=== PATIENT | female | born 1940 | race Two or more races ===

== ENCOUNTER 2016-12-14 15:15 | Outpatient (RCR) | payer OTHER, BC | END 2016-12-30 | disposition home or self-care (01) | LOC: PTY 15:15 | DX: M54.5 Low back pain (principal); M48.00 Spinal stenosis, site unspecified | CPT/HCPCS: 97110; 97161; G0283; G8978; G8979 ==

== ENCOUNTER 2017-02-01 13:00 | Outpatient (RCR) | payer MEDICARE, BC | END 2017-03-01 | disposition home or self-care (01) | LOC: PTY 13:00 | DX: M54.5 Low back pain (principal); M48.00 Spinal stenosis, site unspecified | CPT/HCPCS: 97035; 97110; 97140; G0283 ==

== ENCOUNTER 2017-03-06 16:13 | Outpatient (RCR) | payer MEDICARE, BC | END 2017-03-31 | disposition home or self-care (01) | LOC: PTY 16:13 | DX: M48.00 Spinal stenosis, site unspecified (principal); M54.5 Low back pain | CPT/HCPCS: 97110; G0283 ==